=== PATIENT | female | born 2000 | race Hispanic/Latino ===

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

== ENCOUNTER 2021-08-23 02:42 | Emergency (ER) | payer OTHER, MEDICAID ==
[2021-08-23] MEDS ORDERED: ONDANSETRON 4MG INJ ONE (02:53)
[2021-08-23 03:50] VITALS: BP 134/86
== END 2021-08-23 04:32 | disposition home or self-care (01) ==
LOC: EDH 02:42
DX: R11.2 Nausea with vomiting, unspecified (principal); F12.90 Cannabis use, unspecified, uncomplicated; F84.0 Autistic disorder
CPT/HCPCS: 96374; 99283; J2405

== ENCOUNTER 2021-10-24 17:16 | Emergency (ER) | payer OTHER, MEDICAID ==
[~2021-10-24] VITALS: Ht 152.4 cm; Wt 53.1 kg
[2021-10-24 17:19] VITALS: BP 123/78
[2021-10-24] MEDS ORDERED: ONDANSETRON 4MG INJ IVP ONE (17:30)
[2021-10-24] MEDS ORDERED: MORPHINE 2 MG SYG IVP ONE (17:30)
[2021-10-24 17:49] LABS: BASOPHILS % (AUTO) 0.7 % (0.0-5.0); EOSINOPHILS % (AUTO) 1.7 % (0.0-8.0); HEMATOCRIT 37.8 % (36-48); LYMPHOCYTES % (AUTO) 22.6 % (21.0-51.0); MEAN CORPUSCULAR HEMOGLOBIN 28.3 pg (27.0-33.0); MEAN CORPUSCULAR HGB CONC 33.6 g/dL (32.0-36.0); MEAN CORPUSCULAR VOLUME 84.4 fL (80-100); MONOCYTES % (AUTO) 9.5 % (3.0-13.0); NEUTROPHILS % (AUTO) 65.2 % (40.0-77.0); PLATELET COUNT (AUTO) 233 K/uL (130-400); RED BLOOD CELL COUNT(AUTO) 4.48 MIL/uL (4.00-5.50); RED CELL DISTRIBUTION WIDTH 12.3 % (11.0-15.5); WHITE BLOOD COUNT (AUTO) 5.8 K/uL (4.8-10.8)
[2021-10-24 17:51] LABS: APPEARANCE,URINE CLEAR (CLEAR); BILIRUBIN,URINE NEGATIVE (NEGATIVE); COLOR,URINE YELLOW (YELLOW); GLUCOSE, URINE (UA) NEGATIVE (NEGATIVE); KETONES,URINE NEGATIVE (NEGATIVE); LEUKOCYTE ESTERASE ,URINE NEGATIVE (NEGATIVE); NITRATE,URINE NEGATIVE (NEGATIVE); OCCULT BLOOD,URINE NEGATIVE (NEGATIVE); PH,URINE 7.5 (5.0-8.0); PROTEIN,URINE NEGATIVE (NEGATIVE); UROBILINOGEN,URINE 0.2 mg/dL (0.2-1.0)
[2021-10-24 17:53] LABS: HCG,QUALITATIVE URINE NEGATIVE (NEGATIVE)
[2021-10-24 18:04] LABS: POTASSIUM 4.1 mmol/L (3.5-5.1)
[2021-10-24 18:09] LABS: ALBUMIN 3.9 g/dL (3.5-5.0); TOTAL PROTEIN, SERUM 7.6 g/dL (6.0-8.3)
[2021-10-24] MEDS ORDERED: ONDA4TAB10 PO (19:07)
[2021-10-24] MEDS ORDERED: DICY20TA2 PO (19:07)
== END 2021-10-24 19:22 | disposition home or self-care (01) ==
LOC: EDH 17:16
DX: R10.31 Right lower quadrant pain (principal); F84.0 Autistic disorder; Z79.899 Other long term (current) drug therapy
CPT/HCPCS: 99284; 74176; 96374; 96375; 80053; 83690; 85025; 81003; 81025; 36415; J2405

== ENCOUNTER 2022-01-20 11:46 | Emergency (ER) | payer MEDICAID, OTHER ==
[~2022-01-20] VITALS: Ht 152.4 cm; Wt 51.7 kg
[~2022-01-20 11:46] MED LIST: DICY20TA2 PO; ONDA4TAB10 PO
[2022-01-20 13:34] LABS: BASOPHILS % (AUTO) 0.8 % (0.0-5.0); EOSINOPHILS % (AUTO) 0.9 % (0.0-8.0); HEMATOCRIT 37.7 % (36-48); LYMPHOCYTES % (AUTO) 19.7 % (21.0-51.0); MEAN CORPUSCULAR HEMOGLOBIN 28.1 pg (27.0-33.0); MEAN CORPUSCULAR HGB CONC 33.4 g/dL (32.0-36.0); NEUTROPHILS % (AUTO) 69.1 % (40.0-77.0); PLATELET COUNT (AUTO) 268 K/uL (130-400); RED BLOOD CELL COUNT(AUTO) 4.49 MIL/uL (4.00-5.50); WHITE BLOOD COUNT (AUTO) 6.4 K/uL (4.8-10.8)
[2022-01-20 13:51] LABS: CREATININE 0.8 mg/dL (0.5-1.5)
[2022-01-20 13:56] LABS: ALBUMIN 3.7 g/dL (3.5-5.0); TOTAL PROTEIN, SERUM 7.4 g/dL (6.0-8.3)
[2022-01-20 14:04] LABS: APPEARANCE,URINE CLOUDY (CLEAR); BILIRUBIN,URINE NEGATIVE (NEGATIVE); COLOR,URINE COLORLESS (YELLOW); GLUCOSE, URINE (UA) NEGATIVE (NEGATIVE); KETONES,URINE NEGATIVE (NEGATIVE); LEUKOCYTE ESTERASE ,URINE NEGATIVE Leu/uL (NEGATIVE); NITRATE,URINE NEGATIVE (NEGATIVE); OCCULT BLOOD,URINE NEGATIVE (NEGATIVE); PH,URINE 6.5 (5.0-8.0); PROTEIN,URINE NEGATIVE (NEGATIVE); UROBILINOGEN,URINE 0.2 mg/dL (0.2-1.0)
[2022-01-20 14:06] LABS: HCG,QUALITATIVE URINE NEGATIVE (NEGATIVE)
[2022-01-20 14:09] LABS: BACTERIA,URINE RARE /HPF (None Seen); RBC,URINE 0-1 /HPF (0-1); SQUAMOUS EPITHELIAL CELL,UR RARE /HPF (0-2); WBC,URINE 0-1 /HPF (0-1)
[2022-01-20 14:21] LABS: AMPHET/METH SCREEN,URINE NEGATIVE (NEGATIVE); BARBITURATE SCREEN, URINE NEGATIVE (NEGATIVE); BENZODIAZEPINES SCREEN,URINE NEGATIVE (NEGATIVE); CANNABINOID SCREEN,URINE NEGATIVE (NEGATIVE); COCAINE SCREEN,URINE NEGATIVE (NEGATIVE); OPIATE SCREEN,URINE NEGATIVE (NEGATIVE); PHENCYCLIDINE SCREEN,URINE NEGATIVE (NEGATIVE)
[2022-01-20] MEDS ORDERED: LEVETIRACETAM 250 MG TABLET PO STA (16:08)
[2022-01-20] MEDS ORDERED: LEVE250T PO (16:08)
[2022-01-20 16:49] VITALS: BP 110/74
== END 2022-01-20 16:53 | disposition home or self-care (01) ==
LOC: EDH 11:46
DX: R56.9 Unspecified convulsions (principal); R53.1 Weakness; F84.0 Autistic disorder; Z20.822 Contact with and (suspected) exposure to COVID-19
CPT/HCPCS: 99285; 70450; 87635; 82550; 80053; 80305; 85025; 87804 ×2; 84146; 81001; 81025; 36415; 93005; C9803